=== PATIENT | female | born 1935 | race Two or more races ===

== ENCOUNTER 2021-07-05 08:15 | Inpatient (IN) | payer OTHER ==
[~2021-07-05] VITALS: Ht 160 cm; Wt 78.0 kg
[2021-07-05] MEDS ORDERED: ZETIA10 MG PO (09:17)
[2021-07-05] MEDS ORDERED: LEVO-T100 MCG PO (09:17)
[2021-07-05] MEDS ORDERED: PRAVASTATIN SOD20 MG PO (09:17)
[2021-07-11] MEDS ORDERED: OPTIMAL D31250 MCG (07:56)
[2021-07-11] MEDS ORDERED: SULINDAC200 MG (07:56)
[2021-07-11] MEDS ORDERED: NABUMETONE750 MG (07:57)
== END 2021-07-13 15:09 | DRG 470 ==
LOC: O/R 07-11 05:29 → SURG 07-11 05:29 → SURH 07-11 07:00 → SURG 07-11 11:16
PROVIDERS: ADMIT Orthopaedic Surgery; ATTEND Orthopaedic Surgery
PROC: 0SRC0J9 Replacement of Right Knee Joint with Synthetic Substitute, Cemented, Open Approach (ICD-10-PCS; principal; 2021-07-11 07:00)
DX: M17.11 Unilateral primary osteoarthritis, right knee (principal); E03.9 Hypothyroidism, unspecified